=== PATIENT | male | born 1990 | race Caucasian/White ===

== ENCOUNTER 2025-06-16 06:35 | Day surgery (SDC) | payer OTHER, BC, SELFPAY | END 2025-06-16 10:48 | disposition home or self-care (01) | LOC: GI 06:35 | PROVIDERS: ATTENDING PHYSICIAN Internal Medicine Gastroenterology | DX: K62.5 Hemorrhage of anus and rectum (principal); K64.8 Other hemorrhoids; K57.30 Diverticulosis of large intestine without perforation or abscess without bleeding | CPT/HCPCS: 45378 ==